=== PATIENT | female | born 1965 | race African-American/Black ===

== ENCOUNTER 2017-09-03 08:45 | Emergency (ER) | payer SELFPAY ==
[~2017-09-03] VITALS: Ht 167.6 cm; Wt 63.5 kg
[2017-09-03 08:53] VITALS: BP 100/66
--- NOTE | 2017-09-03 09:18 | PHYS DOC ---
Past Medical History Past Medical History: No Pertinent History Past Surgical History: Tonsillectomy, Other Additional Past Surgical Histo: d&C " LAST YEAR" AND Alcohol Use: Occasionally Drug Use: None Adult General Chief Complaint Chief Complaint: SORE THROAT HPI HPI Patient is a 52 year old female who presents with sore throat, pain with swallowing, sinus drainage, cough, chills but no known fevers. Pt has known family sick with URI. Pt's attempted 400mg po ibuprofen morning and night with only mild improvement. Pt thinks she has strep throat. Review of Systems Review of Systems Constitutional: per hpi Eyes: Denies change in visual acuity, redness, or eye pain [] HENT: Denies nasal congestion or sore throat [] Respiratory: reports cough, denies shortness of breath [] Cardiovascular: denies chest pain GI: Denies abdominal pain, nausea, vomiting, bloody stools or diarrhea [] : Denies dysuria or hematuria [] Musculoskeletal: Denies back pain or joint pain [] Integument: Denies rash or skin lesions [] Neurologic: Denies headache, focal weakness or sensory changes [] Allergies Allergies Allergies Coded Allergies Type Severity Reaction Last Updated Verified No Known Drug Allergies 09/03/17 No Physical Exam Physical Exam Constitutional: Well developed, well nourished, no acute distress, non-toxic appearance. [] HENT: Normocephalic, atraumatic, bilateral external ears normal, oropharynx moist, no oral exudates, nose normal. [] Eyes: PERRLA, EOMI, conjunctiva normal, no discharge. [] Neck: Normal range of motion, no tenderness, supple, no stridor. [] Cardiovascular:Heart rate regular rhythm, no murmur [] Lungs & Thorax: Bilateral breath sounds clear to auscultation [] Abdomen: Bowel sounds normal, soft, no tenderness, no masses, no pulsatile masses. [] Skin: Warm, dry, no erythema, no rash. [] Back: No tenderness, no CVA tenderness. [] Extremities: No tenderness, no cyanosis, no clubbing, ROM intact, no edema. [] Neurologic: Alert and oriented X 3, normal motor function, normal sensory function, no focal deficits noted. [] Psychologic: Affect normal, judgement normal, mood normal. [] Current Patient Data Vital Signs Vital Signs Date Time Temp Pulse Resp B/P (MAP) Pulse Ox O2 Delivery O2 Flow Rate FiO2 09/03/17 08:53 98.3 82 20 96 Room Air 98.3 EKG EKG [] Radiology/Procedures Radiology/Procedures [] Course & Med Decision Making Course & Med Decision Making Pertinent Labs and Imaging studies reviewed. (See chart for details) Rapid strep negative. Pt dc'd with ibuprofen and sudafed RX, referral sheet for follow-up. Smoking cessation counseling performed. Dragon Disclaimer Dragon Disclaimer This electronic medical record was generated, in whole or in part, using a voice recognition dictation system. Departure Departure Impression: Primary Impression: Viral sinusitis Disposition: HOME, SELF-CARE Condition: STABLE Referrals: NO PCP (PCP) Scripts Pseudoephedrine HCl (Nasal Decongestant) 30 Mg Capsule 30 MG PO PRN Q6HRS Y for sinus drainage., #30 CAP Prov: CALLY CARRANZA MD 09/03/17 Ibuprofen (IBUPROFEN) 600 Mg Tablet 600 MG PO PRN Q6HRS Y for PAIN, #20 TAB take with food or milk Prov: CALLY CARRANZA MD 09/03/17 CALLY CARRANZA MD Sep 03, 2017 09:18
[2017-09-03] MEDS ORDERED: PSEU30CA PO (09:41)
[2017-09-03] MEDS ORDERED: IBUP-1007 PO (09:41)
[2017-09-03 10:51] LABS: NEGATIVE OBC STREP NEG; POSITIVE OBC STREP POS
== END 2017-09-03 09:55 | disposition home or self-care (01) ==
LOC: ER 08:45
DX: J32.8 Other chronic sinusitis (principal)
CPT/HCPCS: 87070; 87880; 99283